=== PATIENT | female | born 1960 | race Hispanic/Latino ===

== ENCOUNTER 2018-03-23 15:26 | Emergency (ER) | payer OTHER ==
[~2018-03-23] VITALS: Ht 160 cm; Wt 42.6 kg
[2018-03-23 15:34] VITALS: TEMP 97.9
[2018-03-23 16:31] LABS: PLATELET COUNT 300 K/uL (152-353)
[2018-03-23 17:35] VITALS: BP 118/74
== END 2018-03-23 17:35 | disposition home or self-care (01) ==
LOC: ED 15:26
PROVIDERS: Family Medicine
DX: G45.8 Other transient cerebral ischemic attacks and related syndromes (principal); F41.8 Other specified anxiety disorders
CPT/HCPCS: 80053; 81000; 85027; 85610; 85730; 99283